=== PATIENT | female | born 1980 | race Caucasian/White ===

== ENCOUNTER 2018-02-08 11:59 | Emergency (ER) | payer SELFPAY ==
[2018-02-08 12:00] VITALS: BP 152/90; PULSE 90; RESP 16; TEMP 36.8; O2SAT 100; BMI 32.4
== END 2018-02-08 15:18 | disposition left against medical advice (07) ==
LOC: ED 15:07
PROVIDERS: Emergency Provider Emergency Medicine
DX: M54.9 Dorsalgia, unspecified (principal)

== ENCOUNTER 2019-10-03 21:59 | Emergency (ER) | payer SELFPAY ==
[2019-10-03 22:00] VITALS: BP 147/74; PULSE 112; RESP 18; TEMP 36.8; O2SAT 100; BMI 31.2
--- NOTE | 2019-10-03 22:10 | ED.DCSUM_ITS ---
History of Present Illness Chief Complaint: Cough Informant: Patient Onset: Days Context: Gradual Onset Timing: Continuous Current Severity: Moderate Maximum Severity: Moderate Narrative: The patient is a 39-year-old female who presents to the emergency department with cough, nasal drainage, and facial pressure. She states that it is been going on for the past few days. She denies any fevers or chills. She has had bilateral ear pain. Patient is otherwise healthy. She has no history of immunosuppression. She denies myalgias or arthralgias. She does smoke occa sionally. Prior similar symptoms: No Recent Illness/Hospitalization: No Past Medical History - Allergies and Home Meds Allergies/Adverse Reactions: Allergies No Known Allergies Allergy (Verified 10/03/19 22:02) Primary Care Physician: Care Physician,No Primary [Primary Care Provider] - Prior records reviewed: Yes Past Medical History: None Surgical History: no surgical history Smoking Status: Current every day smoker Review of Systems General: Denies: Chills, Fever, Sweats Eyes: Denies: Visual changes - bilaterally, Diplopia ENT: Reports: Bilateral ear pain, Rhinorrhea, Sore throat Cardiovascular: Denies: Chest pain, Palpitations Respiratory: Reports: Cough. Denies: Dyspnea, Dyspnea on exertion Gastrointestinal: Denies: Abdominal pain, Nausea, Vomiting, Diarrhea, Melena, Hematochezia Genitourinary: Denies: Dysuria, Hematuria, Frequency Musculoskeletal: Denies: Back pain, Extremity Pain Skin: Denies: Rash, Wounds Neurological: Denies: Headache, Weakness, Numbness Physical Exam Vital Signs/Narrative: Vital Signs Temp Pulse Resp BP Pulse Ox 10/03/19 22:00 98.2 F 112 H 18 147/74 H 100 Inital Vital Signs reviewed: Yes General: Well nourished, Well developed, No Acute Distress Head: Normocephalic, Atraumatic Eyes: Perrl, EOMI ENT: Moist mucous membranes, Nasal congestion, Sinus tenderness Neck: Supple, Nontender Cardiovascular: Regular rate, Regular rhythm, No murmurs Respiratory: No distress, CTA bilaterally, Chest nontender Abdomen: Soft, Nontender, Nondistended, Normal bowel sounds Back: Nontender, Normal Inspection Extremities: Nontender, No edema Skin: Normal color, No rash Neurological: Alert, Oriented x3, Cranial nerves II-XII grossly intact, Normal Strength, Normal Sensation Psychological: Normal affect, Normal Mood Diagnostic/Tx/Re-eval - Medical Decision Making The patient has evidence of acute sinusitis. She is afebrile. She has no meningismus. Her lungs are clear. She has no wheezing or rhonchi. I am going to treat with amoxicillin and prednisone. I do not feel imaging or testing is necessary. She is comfortable with this plan of care and will be discharged home. Impression 1. Sinusitis ED Disposition - Plan for ED Patient: Instructions: SINUSITIS, Abx Tx Prescriptions: Amoxicillin 500 mg PO TID #30 tab Prescription Printed Prednisone [Deltasone] 40 mg PO DAILY #10 tab Prescription Printed Referrals: Care Physician,No Primary [Primary Care Provider] -
[2019-10-03] MEDS: predniSONE 20 MG Tablet 40 MG PO (22:29)
[2019-10-03] MEDS: AMOXICILLIN 500 MG CAPSULE PO (22:29)
[2019-10-03 22:30] VITALS: O2SAT 98
== END 2019-10-03 22:31 | disposition home or self-care (01) ==
LOC: ED 22:21
PROVIDERS: Emergency Provider Emergency Medicine
DX: J01.90 Acute sinusitis, unspecified (principal); F17.200 Nicotine dependence, unspecified, uncomplicated
CPT/HCPCS: 99283